=== PATIENT | female | born 1995 | race Caucasian/White ===

== ENCOUNTER 2020-11-16 22:32 | Inpatient (IN) | payer OTHER ==
[2020-11-17 01:42] LABS: HCT 38.2 % (37.0-47.0); HGB 13.3 g/dl (12.5-16.0); MCHC 34.8 g/dL (32.0-36.0); MCV 91.8 fL (78.0-100.0); MPV 11.9 fL (6.0-9.5); RBC 4.16 M/uL (4.20-5.40); RDW 13.3 % (11.5-14.0); WBC 13.5 K/uL (4.0-10.5)
[2020-11-17 01:49] LABS: AMPHETAMINES NEGATIVE (NEGATIVE); BARBITURATES NEGATIVE (NEGATIVE); ECSTASY (MDMA) NEGATIVE (NEGATIVE); MARIJUANA (THC) NEGATIVE (NEGATIVE); METHADONE NEGATIVE (NEGATIVE); OPIATES NEGATIVE (NEGATIVE); OXYCODONE NEGATIVE (NEGATIVE)
[2020-11-17 03:55] LABS: BILIRUBIN NEGATIVE (NEGATIVE); BLOOD 3+ Ery/uL (NEGATIVE); CLARITY CLEAR (CLEAR); COLOR YELLOW (YELLOW); GLUCOSE (U) NORMAL (NORMAL); LEUKOCYTES NEGATIVE Leu/uL (NEGATIVE); NITRITE NEGATIVE (NEGATIVE); PROTEIN NEGATIVE (NEGATIVE); UROBILINOGEN 0.2 mg/dL (0.2-1.0); pH 6.5 (5.0-9.0)
[2020-11-17 04:06] LABS: BACTERIA TRACE
[2020-11-17 10:26] LABS: BILIRUBIN NEGATIVE (NEGATIVE); BLOOD NEGATIVE Ery/uL (NEGATIVE); CLARITY CLEAR (CLEAR); COLOR YELLOW (YELLOW); GLUCOSE (U) NORMAL (NORMAL); LEUKOCYTES NEGATIVE Leu/uL (NEGATIVE); NITRITE NEGATIVE (NEGATIVE); PROTEIN NEGATIVE (NEGATIVE); UROBILINOGEN 0.2 mg/dL (0.2-1.0); pH 6.5 (5.0-9.0)
[2020-11-18 05:45] LABS: HCT 32.5 % (37.0-47.0); HGB 11.1 g/dl (12.5-16.0); MCH 32.5 pg (25.0-31.0); MCHC 34.2 g/dL (32.0-36.0); MPV 10.8 fL (6.0-9.5); RBC 3.42 M/uL (4.20-5.40); RDW 13.4 % (11.5-14.0); WBC 13.8 K/uL (4.0-10.5)
[2020-11-18] MEDS ORDERED: NORCO 5-325 TA1 EACH PO (16:33)
[2020-11-18] MEDS ORDERED: KETOROLAC TROME10 MG PO (16:33)
[2020-11-18] MEDS ORDERED: PRENATAL FORMU1 EACH PO (16:33)
[2020-11-18] MEDS ORDERED: COLACE100 MG PO (16:33)
== END 2020-11-18 21:05 | disposition home or self-care (01) | DRG 786 ==
LOC: FOD 22:32 → FOB 22:32 → FOD 11-17 00:29 → FOB 11-17 02:57
PROVIDERS: ADMIT Specialist
PROC: 10D00Z1 Extraction of Products of Conception, Low, Open Approach (ICD-10-PCS; principal; 2020-11-17 09:15)
DX: O34.211 Maternal care for low transverse scar from previous cesarean delivery (principal); O99.42 Diseases of the circulatory system complicating childbirth; I47.1 Supraventricular tachycardia; Z37.0 Single live birth; Z3A.39 39 weeks gestation of pregnancy; Z20.822 Contact with and (suspected) exposure to COVID-19; O34.83 Maternal care for other abnormalities of pelvic organs, third trimester; N83.12 Corpus luteum cyst of left ovary
CPT/HCPCS: 36415; 80305; 81001; 81003; 86850; 86900; 86901; G0378; J0595; J0690; J1100; J1200; J1885; J2274; J2370; J2405; J7120; U0002

== ENCOUNTER → 2021-10-15 | Day surgery (SDC) | payer OTHER ==
[~2021-10-15] VITALS: Ht 160 cm; Wt 65.8 kg
[~2021-10-15] MED LIST: COLACE100 MG PO; KETOROLAC TROME10 MG PO; NORCO 5-325 TA1 EACH PO; PRENATAL FORMU1 EACH PO
[2021-10-15 10:45] LABS: HCG (URINE) SCREEN NEGATIVE (NEGATIVE)
== END | disposition home or self-care (01) ==
LOC: FAS 10:18
PROVIDERS: Anesthesiology
DX: R10.30 Lower abdominal pain, unspecified (principal); K59.09 Other constipation; Z80.0 Family history of malignant neoplasm of digestive organs; Z91.048 Other nonmedicinal substance allergy status; Z87.891 Personal history of nicotine dependence
CPT/HCPCS: 84703; J2704; J7120